=== PATIENT | female | born 1940 | race Hispanic/Latino ===

== ENCOUNTER 2018-04-24 08:43 | Day surgery (SDC) | payer MEDICARE ==
[2014-03-24 13:03] VITALS: BMI 30.9
[2018-04-24] MEDS ORDERED: Propofol 10 mg/ml Inj (20 ML) ONE (10:57)
--- NOTE | 2018-04-24 10:58 | CP.SDSHP ---
Same Day Surgery H & P - History Proposed Procedure: colonsocopy Pre-Op Diagnosis: screen - Previous Medical/Surgical History Cardiac: Hypertension - Allergies Allergies: Allergies No Known Allergies Allergy (Verified 04/24/18 09:15) - Physical Exam Vital Signs: Vital Signs 04/24/18 08:50 Temperature 98.4 F Pulse Rate 72 Respiratory 18 Rate Blood Pressure 185/67 H O2 Sat by Pulse 100 Oximetry Mental Status: Alert & Oriented x3 Neuro: WNL Heart: WNL Lungs: WNL GI: WNL - {Optional Preform as Required} Abdomen: WNL - Impression Impression: screening Pt. Evaluated Today:Candidate for Anesthesia & Procedure: Yes - Date & Time Date: 04/24/18 Time: 10:58 Short Stay Discharge - Short Stay Discharge Admitting Diagnosis/Reason for Visit: ENCOUNTER FOR SCREENING FOR MALIGNANT NEOPLASM OF Disposition: HOME/ ROUTINE Referrals: Kt Urbina DO [Primary Care Provider] -
[2018-04-24] MEDS ORDERED: Lactated Ringer's 1,000 ML IV ONE (11:00)
[2018-04-24 11:32] VITALS: TEMP 97.8
[2018-04-24 11:41] VITALS: RESP 15; O2SAT 100
[2018-04-24 12:28] VITALS: BP 134/92; PULSE 63
== END 2018-04-24 12:23 | disposition home or self-care (01) ==
LOC: C.ENDO 08:43
PROVIDERS: ATTEND Internal Medicine Gastroenterology
DX: Z12.11 Encounter for screening for malignant neoplasm of colon (principal); I10 Essential (primary) hypertension; K62.1 Rectal polyp; K64.1 Second degree hemorrhoids; K57.30 Diverticulosis of large intestine without perforation or abscess without bleeding
CPT/HCPCS: 45380; 88305; J2001; J2704; J7120